=== PATIENT | male | born 1955 | race Caucasian/White ===

== ENCOUNTER 2018-04-04 10:56 | Emergency (ER) | payer MEDICARE, OTHER, SELFPAY ==
[2018-04-04 11:07] VITALS: BP 128/80; PULSE 82; RESP 18; TEMP 36.9; O2SAT 100
--- NOTE | 2018-04-04 11:57 | ED.MALEGU ---
HPI - Male Genitourinary General Chief complaint: Urogenital-Male Stated complaint: PASSING BLOOD IN URINE, BLOOD CLOTS Time Seen by Provider: 04/04/18 11:01 Source: patient Mode of arrival: ambulatory Limitations: no limitations History of Present Illness HPI Narrative: 63-year-old male, nonsmoker presents with hematuria today and some mild clots. He had classic findings of UTI for the past few days including urinary frequency, urgency and dysuria. He denies systemic findings such as fever, chills nor nausea or vomiting. He has no back pain. He denies any history of the same and takes no blood thinners MD Complaint: dysuria Onset (ago): hour(s) Duration: constant Severity: mild Quality: aching Relieving factors: none Exacerbating factors: none Reports blood in urine Related Data Home Medications Medication Instructions Recorded Confirmed aspirin 81 mg PO DAILY #0 02/04/11 04/04/18 omega 2-khr-tcv-fish oil [Fish Oil] 1,000 mg PO DAILY #0 07/23/12 04/04/18 atorvastatin 20 mg PO BEDTIME 04/04/18 04/04/18 escitalopram oxalate [Lexapro] 10 mg PO DAILY 04/04/18 04/04/18 lorazepam 0.5 mg PO BID 04/04/18 04/04/18 jvykanwu-vce-US-lycopen-lutein 1 tab PO DAILY 04/04/18 04/04/18 [Centrum Silver] trazodone 50 mg PO BEDTIME 04/04/18 04/04/18 Previous Rx's Medication Instructions Recorded cephalexin [Keflex] 500 mg PO QID 7 Days #28 cap 04/04/18 lisinopril 5 mg tablet 5 mg PO DAILY #90 tab 04/04/18 Allergies Allergy/AdvReac Type Severity Reaction Status Date / Time No Known Drug Allergies Allergy Unknown Unverified 06/26/17 11:59 Review of Systems Constitutional Denies chills, Denies fever(s), Denies lethargy and Denies weakness Eyes Denies change in vision, Denies eye discharge, Denies irritation and Denies loss of vision ENT Ears, Nose, Mouth, and Throat: Denies change in voice, Denies neck pain and Denies sore throat Cardiovascular Denies chest pain, Denies irregular heart rhythm, Denies lightheadedness, Denies palpitations, Denies dyspnea, Denies dyspnea on exertion and Denies orthopnea Respiratory Denies cough, Denies dyspnea, Denies dyspnea on exertion and Denies wheezing Gastrointestinal Gastrointestinal: Denies abdominal pain, Denies change in bowel habits, Denies diarrhea, Denies nausea and Denies vomiting Genitourinary Reports hematuria, Denies flank pain, Reports urinary frequency, Denies urinary incontinence and Reports urinary urgency Musculoskeletal Denies neck pain Integumentary/Breasts Denies pruritus, Denies erythema, Denies rash and Denies wounds Neurologic Denies confusion, Denies loss of vision and Denies weakness Psychiatric Denies anxiety, Denies confusion, Denies depression, Denies homicidal ideation and Denies suicidal ideation Endocrine Denies palpitations Hematologic/Lymphatic Denies easy bruising Allergic/Immunologic Denies wheezing [facility] Social History Smoking Status: Never smoker Exam Narrative Exam Narrative: GEN: AOx3 and in mild distress EYES: Pupils are equal, round, and reactive to light and accommodation. Extraoccular muscles are intact bilaterally. There is no subconjunctival hemorrhage or exudate. CHEST: Lungs are clear to auscultation bilaterally and free of wheezes, rales, or rhonchi. Heart rate is regular rhythm, there are no murmurs, clicks, rubs, or gallops. There is no chest wall tenderness. ABD: Abdomen is soft and nontender. There is no guarding or rebound. Bowel sounds are normal in all 4 quadrants. There is no mass or organomegaly. EXT: Full painless ROM of all extremities with no loss of sensation or strength. SKIN: Warm, pink, and dry. No erythema or rash Initial Vital Signs Initial Vital Signs: Vital Signs Temperature 98.4 F 04/04/18 11:07 Pulse Rate 82 04/04/18 11:07 Respiratory Rate 18 04/04/18 11:07 Blood Pressure 128/80 04/04/18 11:07 Pulse Oximetry 100 04/04/18 11:07 Course Orders Ordered: ED Orders 04/04/18 11:11 Urinalysis and Microscopic Stat Vital Signs - 8 hr 04/04/18 11:07 04/04/18 12:23 04/04/18 13:08 Temperature 98.4 F Pulse Rate 82 51 L 82 Respiratory Rate 18 18 15 Blood Pressure 128/80 143/80 H Blood Pressure [Right Arm] 132/85 Pulse Oximetry 100 96 98 MDM - Male Genitourinary Lab Data Lab Results 04/04/18 Range/Units Unknown Urine Color Yellow Urine Appearance Sl cloudy Urine pH 7.0 (4.5-8.0) Ur Specific [place] 1.020 (1.000-1.035) Urine Protein Negative (Negative) Urine Glucose (UA) Negative (Negative) g/dL Urine Ketones Negative (NEGATIVE) Urine Occult Blood 3+ H (Negative) Urine Nitrate Positive (Negative) Urine Bilirubin Negative (NEGATIVE) Urine Urobilinogen 0.2 (0.2) E.U./dL Ur Leukocyte Esterase 2+ H (NEGATIVE) Urine RBC 5-10/hpf H (0-5/HPF) Urine WBC 30-100/hpf H (0-5/HPF) Ur Squamous Epith Cells None seen Urine Bacteria Moderate (10-30) H (None) Ur Culture Indicated? Specimen cultured Discharge Plan Departure Patient Disposition: Home Clinical Impression: Acute UTI Discharge Date/Time: 04/04/18 13:09 Interventions: ED Discharge Assessment Last Done: 04/04/18 13:08 Instructions: Urinary Tract Infection Activity Restrictions/Additional Instructions: *You have been diagnosed with [acute urinary tract infection with hematuria ] *What to do: *Take medications as directed. Keflex electronically transmitted to [facility] at your request *Follow up with your primary care provider in 2-3 days, call for an appointment. Let them know you were seen in the Emergency Department and that we ask that you be seen in follow up *Return to ER if you should have any new, worsening or concerning symptoms, such as [ fever, shaking chills, vomiting, increasing pain or other bothersome symptoms] Prescriptions: New cephalexin [Keflex] 500 mg capsule 500 mg PO QID 7 Days Qty: 28 RF: 0 No Action aspirin 81 mg Tablet,Delayed Release (Dr/Ec) 81 mg PO DAILY Qty: 0 RF: 0 omega 3-pto-wgj-fish oil [Fish Oil] 1,000 mg (120 mg-180 mg) Capsule 1,000 mg PO DAILY Qty: 0 RF: 0 lisinopril 5 mg tablet 5 mg PO DAILY Qty: 90 RF: 0 ziowegva-uui-BX-lycopen-lutein [Centrum Silver] 0.4-300-250 mg-mcg-mcg Tablet 1 tab PO DAILY RF: 0 atorvastatin 40 MG tablet 20 mg PO BEDTIME RF: 0 trazodone 50 mg tablet 50 mg PO BEDTIME RF: 0 lorazepam 0.5 mg tablet 0.5 mg PO BID RF: 0 escitalopram oxalate [Lexapro] 20 MG tablet 10 mg PO DAILY RF: 0 Referrals: Jaxson Sinclair MD [Primary Care Provider] -
[2018-04-04 12:18] LABS: Appearance Urine UA SL CLOUDY; Bilirubin Urine UA NEGATIVE (NEGATIVE); Color Urine UA YELLOW; Glucose Urine UA NEGATIVE (Negative); Ketones Urine UA NEGATIVE (NEGATIVE); Leukocyte Esterase Urine UA 2+ (NEGATIVE); Nitrite Urine UA POSITIVE (Negative); Occult Blood Urine UA 3+ (Negative); Protein Urine UA NEGATIVE (Negative); Urobilinogen Urine UA 0.2 E.U./dL (0.2)
[2018-04-04 12:23] VITALS: BP 132/85; PULSE 51; RESP 18; O2SAT 96
[2018-04-04 12:36] LABS: RBC Urine 5-10/HPF (0-5/HPF); WBC Urine 30-100/HPF (0-5/HPF)
[2018-04-04 12:37] LABS: Bacteria Urine Moderate (10-30); Culture Indicated Urine Specimen Cultured; Squamous Epithelial Cell Urine None Seen
[2018-04-04 13:08] VITALS: BP 143/80; PULSE 82; RESP 15; O2SAT 98
== END 2018-04-04 13:09 | disposition home or self-care (01) ==
PROVIDERS: Emergency Provider Emergency Medicine; PCP Family Medicine
DX: N39.0 Urinary tract infection, site not specified (principal)
CPT/HCPCS: 51798; 81001; 87077; 87086; 87186; 99283

== ENCOUNTER → 2018-04-07 15:54 | Outpatient (CLI) | payer MEDICARE, OTHER, SELFPAY | PROVIDERS: PCP Family Medicine; Visit Provider Family Medicine | DX: R31.0 Gross hematuria (principal); Z12.5 Encounter for screening for malignant neoplasm of prostate | CPT/HCPCS: 36415; G0103 ==

== ENCOUNTER → 2018-04-11 09:25 | Outpatient (CLI) | payer MEDICARE, OTHER, SELFPAY ==
--- NOTE | 2018-04-11 10:10 | DI.CT.S_ITS ---
PROCEDURE: CT KIDNEY URETER BLADDER (KUB) INDICATIONS: gross hemeturia,right flank pain TECHNIQUE: Noncontrast 5 mm thick sections acquired from the diaphragms to the symphysis. 5 mm thick coronal and sagittal reformats were then performed. For radiation dose reduction, the following was used: automated exposure control, adjustment of mA and/or kV according to patient size. COMPARISON: [facility], CT, THORAX WITHOUT CONTRAST, 08/01/2012, 9:51. FINDINGS: Image quality: Excellent. Lung bases: Lung bases are clear. Heart size is normal. Urinary system: Both kidneys are normal in size. No kidney stones. No hydronephrosis or perinephric fat stranding. Both ureters appear non-dilated throughout their expected courses. The bladder is predominantly decompressed. There is moderate thickening of the anterior bladder wall. Other solid organs: Liver is normal in size. Gallbladder is contracted. Pancreas is normal in contours. Spleen is normal in size. No adrenal nodules. Peritoneum and bowel: Unenhanced bowel loops demonstrate normal wall thickness and caliber. The appendix is thin walled and gas filled. No free fluid or air. Nodes and vessels: No retroperitoneal or mesenteric adenopathy by size criteria. Aorta and inferior vena cava are normal in caliber. There are scattered atheromatous calcifications throughout the aorta and iliac arteries bilaterally. Abdominal wall: No ventral hernias. Pelvis: No free pelvic fluid. No inguinal adenopathy. There is a small left fat-containing inguinal hernia. Bones: No suspicious bony lesions. No vertebral body compression fractures. IMPRESSION: 1. No hydronephrosis, nephrolithiasis, hydroureter, or ureterolithiasis. 2. Bladder wall thickening. Acute cystitis could be considered in the differential. However, no discrete perivesicular fat stranding is noted. Infiltrative neoplasm could also be considered in the differential diagnosis. Urologic consult recommended. 3. Normal appendix. No acute intra-abdominal findings. Dictated by: Michelle Macdonald M.D. on 04/11/2018 at 14:14 Approved by: Michelle Macdonald M.D. on 04/11/2018 at 14:18
== END ==
PROVIDERS: PCP Family Medicine; Visit Provider Family Medicine
DX: R31.0 Gross hematuria (principal); R10.9 Unspecified abdominal pain
CPT/HCPCS: 74176

== ENCOUNTER → 2018-06-10 10:02 | Outpatient (CLI) | payer MEDICARE, OTHER, SELFPAY ==
--- NOTE | 2018-06-10 | DI.CT.S_ITS ---
PROCEDURE: CT ABDOMEN PELVIS WO/W CON INDICATIONS: Gross hematuria TECHNIQUE: Optional 5 mm thick noncontrast images acquired from the diaphragm to the symphysis pubis. After the administration of intravenous contrast, 5 mm thick images acquired from the diaphragm to the symphysis pubis after a 10-minute delay. 2 mm thick coronal and sagittal reformats were then performed of the kidneys and ureters. For radiation dose reduction, the following was used: automated exposure control, adjustment of mA and/or kV according to patient size. COMPARISON: None. FINDINGS: Image quality: Excellent. Lung bases: Lung bases are clear. Heart size is normal. Urinary system: Both kidneys are normal in size, without hydronephrosis or nephrolithiasis on pre-contrast images. No perinephric fat stranding. There is normal bilateral renal enhancement. Renal calyces appear normal in morphology when filled with contrast. Opacified portions of both ureters demonstrate normal caliber. The urinary bladder is decompressed. Given this, the bladder wall thickness is normal. No calcified bladder stones. Other solid organs: Liver is normal in size and enhancement. Mild diffuse parenchymal hypodensity. Gallbladder is normal. Biliary system is non dilated. Pancreas enhances normally. Spleen is normal in size and enhancement. No adrenal nodules. Peritoneum and bowel: Bowel loops demonstrate normal wall thickness and caliber. No free fluid or air. Nodes and vessels: No retroperitoneal or mesenteric adenopathy by size criteria. Aorta and inferior vena cava are normal in size. Abdominal wall: No ventral hernias. Pelvis: No pathologic free pelvic fluid. No inguinal hernias or adenopathy. Bones: No suspicious bony lesions. No vertebral body compression fractures. IMPRESSION: 1. No evidence of urinary calcifications or abnormal soft tissue lesions. 2. Under distended, but otherwise normal-appearing urinary bladder. If there is further concern for subtle bladder lesion, cystoscopy may be considered. 3. Mild hepatic steatosis. Dictated by: Brisa Ngo M.D. on 06/10/2018 at 11:17 Approved by: Brisa Ngo M.D. on 06/10/2018 at 11:26
== END ==
PROVIDERS: PCP Family Medicine; Visit Provider Urology
DX: R31.0 Gross hematuria (principal); K76.0 Fatty (change of) liver, not elsewhere classified
CPT/HCPCS: 74178; Q9967

== ENCOUNTER → 2018-08-21 08:36 | Outpatient (CLI) | payer MEDICARE, OTHER, SELFPAY ==
[2018-08-21 09:33] LABS: BUN Creatinine Ratio 21.1 (6-22); Blood Urea Nitrogen 19 mg/dL (9-20); Estimated Glomerular Filt Rate > 60.0 mL/min (>60)
--- NOTE | 2018-08-21 09:54 | DI.CT.S_ITS ---
PROCEDURE: CT UE RT W CON INDICATIONS: axillary mass TECHNIQUE: After the administration of intravenous contrast, 3 mm axial sections acquired of the right axilla, with coronal and sagittal reformats. COMPARISON: [facility], CT, CT ABDOMEN PELVIS WO/W CON, 06/10/2018, 10:27. FINDINGS: Image quality: Excellent. Bones: No fracture or dislocation. There is mild/moderate degenerative joint disease in the right acromioclavicular joint and glenohumeral joint. There are degenerative disc disease in cervical spine. Soft tissues: No mass is identified. Numerous small right axillary lymph nodes are seen with fatty hilum, most there could IMPRESSION: 1. No mass is identified in right axilla. If clinical symptoms persist, a focused ultrasound of the area may be helpful. 2. Numerous small right axillary lymph nodes are present, which is nonspecific but most likely reactive. Dictated by: Reece Ferreira M.D. on 08/21/2018 at 13:00 Approved by: Reece Ferreira M.D. on 08/21/2018 at 18:26
== END ==
PROVIDERS: PCP Family Medicine; Visit Provider Family Medicine
DX: Z01.812 Encounter for preprocedural laboratory examination (principal); R22.31 Localized swelling, mass and lump, right upper limb; M19.011 Primary osteoarthritis, right shoulder; M50.30 Other cervical disc degeneration, unspecified cervical region
CPT/HCPCS: 36415; 73201; 82565; 84520; Q9967

== ENCOUNTER → 2018-10-06 09:02 | Outpatient (CLI) | payer MEDICARE, OTHER, SELFPAY ==
[2018-10-06 10:47] LABS: HCG Quantitative /Beta subunit < 2.39 mIU/mL (-2.40)
[2018-10-06 11:08] LABS: Luteinizing Hormone 3.48 mIU/mL
[2018-10-06 11:24] LABS: Estradiol, Total 15.9 pg/mL
[2018-10-09 22:20] LABS: Testosterone Free 25.3 pg/mL (35.0-155.0); Testosterone Total 161 ng/dL (250-1100)
== END ==
PROVIDERS: PCP Family Medicine; Visit Provider Surgery
DX: N62 Hypertrophy of breast (principal); Q83.1 Accessory breast
CPT/HCPCS: 36415; 82670; 83002; 84402; 84403; 84702

== ENCOUNTER → 2018-11-20 07:03 | Outpatient (CLI) | payer MEDICARE, OTHER, SELFPAY ==
[2018-11-20 11:59] LABS: Follicle Stimulating Hormone 2.96 mIU/mL
[2018-11-20 12:12] LABS: Estradiol, Total 20.1 pg/mL
[2018-11-20 12:38] LABS: Luteinizing Hormone 2.13 mIU/mL
[2018-11-23 08:43] LABS: Sex Hormone Binding Globulin 22 nmol/L (22-77); Testosterone, Bioavailable 82.8 ng/dL (110.0-575.0); Testosterone, Total 235 ng/dL (250-1100); Testosterone,Free 39.4 pg/mL (46.0-224.0)
[2018-12-02 14:54] LABS: Albumin 4.6
== END ==
PROVIDERS: PCP Family Medicine; Visit Provider Internal Medicine Endocrinology, Diabetes & Metabolism
DX: N62 Hypertrophy of breast (principal); R68.89 Other general symptoms and signs
CPT/HCPCS: 36415; 82040; 82157; 82670; 83001; 83002; 84146; 84270; 84403; 84443

== ENCOUNTER → 2018-12-15 18:46 | Outpatient (CLI) | payer MEDICARE, OTHER, SELFPAY ==
--- NOTE | 2018-12-15 | DI.MRI.S_ITS ---
PROCEDURE: MR SHOULDER RT WO CON INDICATIONS: Unspecified rotator cuff tear or rupture of right TECHNIQUE: Noncontrast oblique coronal T2 fast spin echo with fat saturation, oblique sagittal T1 spin echo and T2 fast spin echo with fat saturation, axial T1 spin echo and T2 fast spin echo with fat saturation through the shoulder. COMPARISON: [facility], MR, SHOULDER WITHOUT CONTRAST, 02/08/2017, 7:09. FINDINGS: Image quality: Excellent. Rotator cuff: There is full-thickness rupture of distal supraspinatus at its insertion the humeral head with medial retraction of torn tendon fibers to the level of the chromium and a fluid-filled Measures 1.2 x 1.1 cm in transverse and AP dimensions. Tendinosis are moderately articular surface partial-thickness tear involving distal infraspinatus is seen extending to musculotendinous junction. Distal subscapularis tendinosis and low-grade intrasubstance partial thickness tear is also noted. Sagittal images demonstrate mild to moderate supraspinatus muscle atrophy. Bones and bursae: No bone marrow contusions or fractures. Moderate acromioclavicular joint and glenohumeral joint osteoarthritis is seen. Small to moderate amount of subacromial subdeltoid bursal fluid and glenohumeral joint effusion is seen. Capsule and soft tissues: In the absence of intra-articular contrast, there is signal abnormality and contour irregularity involving the posterior-superior labrum extending from 10 to 12:00 position. The glenohumeral ligaments appear intact. The long head of the biceps tendon demonstrates normal location and morphology. The rotator interval appears normal, without fibrosis. The coracohumeral ligament is normal in thickness. IMPRESSION: 1. Full-thickness rupture of distal supraspinatus near its insertion the humeral head with medial retraction of torn tendon fibers to the level of acromium as described above. Mild to moderate supraspinatus muscle atrophy. 2. Tendinosis and moderately articular surface partial-thickness tear involving distal infraspinatus. Tendinosis and low-grade intrasubstance partial-thickness tear involving distal subscapularis. 3. Moderate acromioclavicular joint and glenohumeral joint osteoarthritis. 4. Suggestion of posterior superior labral tear at 10 to 12:00 position. Dictated by: Oral Chase M.D. on 12/16/2018 at 8:51 Approved by: Oral Chase M.D. on 12/16/2018 at 8:55
== END ==
PROVIDERS: PCP Family Medicine; Visit Provider Orthopaedic Surgery
DX: M75.121 Complete rotator cuff tear or rupture of right shoulder, not specified as traumatic (principal); M19.011 Primary osteoarthritis, right shoulder
CPT/HCPCS: 73221

== ENCOUNTER → 2018-12-22 12:14 | Outpatient (CLI) | payer MEDICARE, OTHER, SELFPAY | PROVIDERS: Family Provider Family Medicine; PCP Family Medicine; Visit Provider Orthopaedic Surgery | DX: Z01.818 Encounter for other preprocedural examination (principal) | CPT/HCPCS: 93005 ==

== ENCOUNTER → 2019-03-26 09:59 | Outpatient (CLI) | payer MEDICARE, OTHER, SELFPAY ==
[2019-03-26 11:10] LABS: Alanine Aminotransferase 72 IU/L (<50); Albumin 4.8 g/dL (3.5-5.0); Albumin Globulin Ratio 1.8 (1.0-2.8); Alkaline Phosphatase 80 U/L (38-126); Aspartate Aminotransferase 65 IU/L (17-59); BUN Creatinine Ratio 21.1 (6-22); Bilirubin Total 0.6 mg/dL (0.2-1.3); Blood Urea Nitrogen 19 mg/dL (9-20); Calcium 9.7 mg/dL (8.4-10.2); Carbon Dioxide 26 mmol/L (22-32); Chloride 104 mmol/L (98-107); Cholesterol 135 mg/dL (140-199); Estimated Glomerular Filt Rate > 60.0 mL/min (>60); Globulin 2.6 g/dL (1.7-4.1); Glucose 148 mg/dL (80-110); HDL Cholesterol 32 mg/dL (40-60); HEMOLYSIS < 15 (0-50); LDL Cholesterol Calculated 64 mg/dL (<100); Potassium 4.3 mmol/L (3.4-5.1); Sodium 138 mmol/L (137-145); Total Protein 7.4 g/dL (6.3-8.2); Triglycerides 193 mg/dL (35-150)
== END ==
PROVIDERS: PCP Family Medicine; Visit Provider Internal Medicine Cardiovascular Disease
DX: I25.10 Atherosclerotic heart disease of native coronary artery without angina pectoris (principal)
CPT/HCPCS: 36415; 80053; 80061

== ENCOUNTER → 2019-04-04 10:03 | Outpatient (CLI) | payer MEDICARE, OTHER, SELFPAY ==
[2019-04-04 11:19] LABS: Cholesterol 135 mg/dL (140-199); HDL Cholesterol 34 mg/dL (40-60); LDL Cholesterol Calculated 72 mg/dL (<100); Triglycerides 144 mg/dL (35-150)
== END ==
PROVIDERS: PCP Family Medicine; Visit Provider Internal Medicine Cardiovascular Disease
DX: I25.10 Atherosclerotic heart disease of native coronary artery without angina pectoris (principal)
CPT/HCPCS: 36415; 80061

== ENCOUNTER → 2019-10-09 12:50 | Outpatient (CLI) | payer MEDICARE, OTHER, SELFPAY ==
--- NOTE | 2019-10-09 | DI.MRI.S_ITS ---
PROCEDURE: MR LUMBAR SPINE WO CON INDICATIONS: Low back pain TECHNIQUE: Noncontrast sagittal T1 spin echo and T2 fast echo, sagittal STIR, axial T1 and T2 fast spin echo through the lumbar spine. In cases with scoliosis, additional coronal T2 fast spin echo may be performed. COMPARISON: [facility], CR, L-SPINE 2-3 VIEWS, 11/24/2014, 12:39. [facility], MR, L-SPINE WITHOUT CONTRAST, 04/08/2015, 9:28. FINDINGS: Image quality: Excellent. Alignment and Curvature: 5 lumbar type vertebral bodies are present by plain film. There is mild grade 1 anterolisthesis of L4 on L5. Bone Marrow: Marrow is of normal overall signal. No acute vertebral body compression fractures. There is mild reactive signal within the endplates adjacent to the L4-L5 and L5-S1 intervertebral discs. Spinal Cord: Conus medullaris terminates at the lower L1 level. Visualized cord demonstrates normal signal and size. Paraspinous Soft Tissues: No paravertebral masses. L1-L2: Mild disc desiccation and diffuse disc bulge. Mild facet and ligamentum flavum hypertrophy. Minimal canal stenosis. No foraminal stenosis. No change. L2-L3: Mild disc height loss and desiccation. Mild diffuse disc bulge. Mild facet and ligamentum flavum hypertrophy. Mild canal stenosis. Mild bilateral foraminal stenosis. No change. L3-L4: Mild disc desiccation and diffuse disc bulge. Mild facet and ligamentum flavum hypertrophy. Mild epidural lipomatosis. Mild canal stenosis. Mild bilateral foraminal stenosis. No change. L4-L5: Mild disc height loss. Moderate disc desiccation. Moderate diffuse disc bulge. Moderate facet hypertrophy bilaterally with bilateral facet joint effusions. Mild ligamentum flavum hypertrophy. Mild epidural lipomatosis. There is increased, severe canal stenosis. There is increased, moderate subarticular foraminal stenosis bilaterally. L5-S1: Moderate disc height loss and desiccation. Mild diffuse disc bulge. Mild facet hypertrophy bilaterally. Mild canal stenosis. Mild subarticular foraminal stenosis bilaterally. No change. IMPRESSION: 1. Multilevel degenerative disc and facet disease, as well as ligamentum flavum hypertrophy and epidural lipomatosis. 2. Multilevel canal stenosis, worst at L4-L5, where there is increased, severe canal stenosis. 3. Multilevel foraminal stenoses, worst at L4-L5 where there is increased, moderate foraminal stenosis bilaterally. Dictated by: Shona Bynum M.D. on 10/09/2019 at 13:44 Approved by: Shona Bynum M.D. on 10/09/2019 at 13:50
== END ==
PROVIDERS: PCP Family Medicine; Referring Provider Physical Medicine & Rehabilitation; Visit Provider Physical Medicine & Rehabilitation
DX: M54.5 Low back pain (principal); M51.36 Other intervertebral disc degeneration, lumbar region; M51.37 Other intervertebral disc degeneration, lumbosacral region; M48.061 Spinal stenosis, lumbar region without neurogenic claudication; M48.07 Spinal stenosis, lumbosacral region; E88.2 Lipomatosis, not elsewhere classified
CPT/HCPCS: 72148

== ENCOUNTER → 2019-12-24 09:02 | Outpatient (CLI) | payer MEDICARE, OTHER, SELFPAY ==
[2019-12-24 09:58] LABS: Add Manual Diff / Slide Review NO; Basophils Absolute Auto 0 /uL (0-100); Basophils Percent Auto 0.4 % (0-2); Eosinophils Absolute Auto 100 /uL (0-450); Eosinophils Percent Auto 1.5 % (2-4); Hematocrit 43.2 % (41-53); Hemoglobin 14.9 g/dL (13.5-17.5); Lymphocytes Absolute Auto 2400 /uL (1100-4500); Lymphocytes Percent Auto 32.8 % (25-40); Mean Corpuscular HGB Conc 34.4 % (30-36); Mean Corpuscular Hemoglobin 32.2 PG (26-34); Mean Corpuscular Volume 93.6 fL (80-100); Monocytes Absolute Auto 500 /uL (0-900); Monocytes Percent Auto 7.3 % (3-14); Neutrophils Absolute Auto 4200 /uL (1500-7000); Platelet Count 126 X10^3/uL (150-400); Red Blood Cell Count 4.62 X10^6/uL (4.5-5.9); Red Cell Distribution Width 12.8 % (11.6-14.8); White Blood Cell Count 7.2 X10^3/uL (4.5-11.0)
[2019-12-24 10:08] LABS: Alanine Aminotransferase 64 IU/L (<50); Albumin 4.3 g/dL (3.5-5.0); Albumin Globulin Ratio 1.7 (1.0-2.8); Alkaline Phosphatase 65 U/L (38-126); Aspartate Aminotransferase 56 IU/L (17-59); BUN Creatinine Ratio 24.2 (6-22); Bilirubin Total 0.8 mg/dL (0.2-1.3); Blood Urea Nitrogen 22 mg/dL (9-20); Calcium 9.7 mg/dL (8.4-10.2); Carbon Dioxide 28 mmol/L (22-32); Chloride 106 mmol/L (98-107); Cholesterol 138 mg/dL (140-199); Estimated Glomerular Filt Rate > 60.0 mL/min (>60); Globulin 2.6 g/dL (1.7-4.1); Glucose 113 mg/dL (80-110); HDL Cholesterol 43 mg/dL (40-60); HEMOLYSIS < 15 (0-50); LDL Cholesterol Calculated 73 mg/dL (<100); Potassium 4.6 mmol/L (3.4-5.1); Sodium 139 mmol/L (137-145); Total Protein 6.9 g/dL (6.3-8.2); Triglycerides 108 mg/dL (35-150)
[2019-12-24 10:37] LABS: Prostate Specific Antigen Scrn 0.223 ng/mL (0.1-4.0)
== END ==
PROVIDERS: PCP Family Medicine; Referring Provider Family Medicine; Visit Provider Family Medicine
DX: E78.2 Mixed hyperlipidemia (principal); I25.10 Atherosclerotic heart disease of native coronary artery without angina pectoris; Z12.5 Encounter for screening for malignant neoplasm of prostate
CPT/HCPCS: 36415; 80053; 80061; 85025; G0103

== ENCOUNTER → 2020-01-08 10:28 | Outpatient (CLI) | payer MEDICARE, OTHER, SELFPAY ==
[2020-01-08 12:18] LABS: Add Manual Diff / Slide Review NO; Basophils Absolute Auto 0 /uL (0-100); Basophils Percent Auto 0.6 % (0-2); Eosinophils Absolute Auto 100 /uL (0-450); Eosinophils Percent Auto 1.2 % (2-4); Hematocrit 41.5 % (41-53); Hemoglobin 14.1 g/dL (13.5-17.5); Lymphocytes Absolute Auto 2000 /uL (1100-4500); Lymphocytes Percent Auto 30.3 % (25-40); Mean Corpuscular Hemoglobin 31.6 PG (26-34); Monocytes Absolute Auto 700 /uL (0-900); Monocytes Percent Auto 10.3 % (3-14); Neutrophils Absolute Auto 3700 /uL (1500-7000); Neutrophils Percent Auto 57.6 % (50-75); Platelet Count 112 X10^3/uL (150-400); Red Blood Cell Count 4.46 X10^6/uL (4.5-5.9); Red Cell Distribution Width 12.7 % (11.6-14.8); White Blood Cell Count 6.5 X10^3/uL (4.5-11.0)
[2020-01-08 12:49] LABS: BUN Creatinine Ratio 29.8 (6-22); Blood Urea Nitrogen 25 mg/dL (9-20); Calcium 9.6 mg/dL (8.4-10.2); Carbon Dioxide 26 mmol/L (22-32); Chloride 107 mmol/L (98-107); Estimated Glomerular Filt Rate > 60.0 mL/min (>60); Glucose 108 mg/dL (80-110); HEMOLYSIS < 15 (0-50); Sodium 139 mmol/L (137-145)
== END ==
PROVIDERS: PCP Family Medicine; Referring Provider Orthopaedic Surgery; Visit Provider Orthopaedic Surgery
DX: Z01.818 Encounter for other preprocedural examination (principal); Z01.812 Encounter for preprocedural laboratory examination
CPT/HCPCS: 36415; 80048; 85025; 93005; 93010

== ENCOUNTER → 2020-01-30 10:18 | Outpatient (CLI) | payer MEDICARE, OTHER, SELFPAY ==
[2020-01-30 13:04] LABS: Prostate Specific Antigen 0.194 ng/mL (0.10-4.00)
== END ==
PROVIDERS: PCP Family Medicine; Referring Provider Urology; Visit Provider Urology
DX: Z12.5 Encounter for screening for malignant neoplasm of prostate (principal)
CPT/HCPCS: 36415; 84153; G0103

== ENCOUNTER → 2020-02-22 08:48 | Outpatient (CLI) | payer MEDICARE, OTHER, SELFPAY ==
[2020-02-22 11:10] LABS: COVID19 -Nasal RAPID Negative (Negative)
== END ==
PROVIDERS: PCP Family Medicine; Visit Provider Physician Assistant
DX: Z11.59 Encounter for screening for other viral diseases (principal)
CPT/HCPCS: 87635

== ENCOUNTER 2020-02-23 08:09 | Inpatient (IN) | payer MEDICARE, OTHER, SELFPAY ==
[2020-02-18 09:33] VITALS: BMI 32.3
[2020-02-23] VITALS (24 sets, daily range): BP systolic 98–149; BP diastolic 44–88; PULSE 39–49; RESP 7–16; TEMP 35.8–36.8; O2SAT 88–100; BMI 32.3
--- NOTE | 2020-02-23 | DI.RAD.S_ITS ---
PROCEDURE: XR LUMBAR SPINE 2-3V INDICATIONS: L4-5 XLIF TECHNIQUE: 2 views of the lumbar spine were acquired. COMPARISON: [facility], , L-SPINE 2-3 VIEWS, 11/24/2014, 12:39. FINDINGS: Posterior spinal fixation with paraspinal gabby and pedicle screws present at the L4-L5 level. There is also interbody cage graft at L4-L5. Dictated by: Jarad Clifton M.D. on 02/24/2020 at 9:35 Approved by: Jarad Clifton M.D. on 02/24/2020 at 9:36
[2020-02-23] MEDS: LACTATED RINGERS 1,000 ML 42 ML IV ×2 (08:57→13:06)
--- NOTE | 2020-02-23 09:28 | PM.PREOP ---
Pre-operative Note COVID-19 COVID-19 status: Negative Result date/Date tested (Pos, Neg/Pending): 02/22/20 Interval Note History & Physical reviewed/Exam performed by Physician: Yes Changes to H&P: No
--- NOTE | 2020-02-23 10:11 | P.OP_ITS ---
Operative Date/Time/Diagnoses Date of procedure: 02/23/20 Time of procedure: 13:50 Pre-op diagnosis: Lumbar stenosis with radiculopathy Spondylolisthesis Post-op diagnosis: same Procedure & Clinicians Procedure: L4-5 anterior fusion with cage L4-5 posterior fusion with screws Iliac crest bone graft aspirate L4-5 laminectomy Use of microscope Placement of epidural catheter Same procedure as scheduled: Yes Indications: [age] year old male with intractable pain from stenosis. They had failed conservative management and requested operative intervention. Risks and benefits of surgery were discussed and appropriate consents were obtained. Surgeon: Vicente Benitez Supervisor [employer]: Sofia Baldwin Anesthesia Type: General Operative Notes Findings: None Closure Type: primary Specimen(s): none sent Prosthetic devices, grafts, tissues, transplants, or devices: NuVasive MAS Reline screws and XLIF cage Applied: catheter Estimated Blood Loss (mL): 30 Procedure in detail: Patient was brought to the operating room and intubated on the table. Time-out was performed. They were then rolled over to the lateral decubitus position with the [id number]. The table was bent and they were taped down in the correct position. X-rays were taken to confirm a true AP and lateral. Preoperative antibiotics were given. The left flank was prepped and draped in standard sterile fashion. Using fluoroscopy, a 3 cm incision was made above the iliac crest. We bluntly dissected down with Metzenbaum scissors and split the 3 abdominal muscle layers. We dissected out the retroperitoneal space and using finger guidance, brought our 1st dilator down to the psoas muscle. Using neuromonitoring and fluoroscopy, we placed it through the psoas onto the L4-5 disc space in an anterior position and gradually pulled the dilator posteriorly along the disc space. We placed our guidewire and measured our depth for the retractor. We then dilated with the next 2 dilators and then placed our retractor over the dilators. Position was confirmed with fluoroscopy and the retractor was locked down to the bar. We opened up the retractor and checked with neuro monitoring. We then placed the debbie and again checked with neuro monitoring. The retractor was opened further and the ALL retractor was placed. An annulotomy was performed. We then performed a complete diskectomy with ring curette, pituitary, box osteotome. A Posada was advanced across the disc space under fluoroscopy to release the lateral annulus on the opposite side. We then used sequentially larger trials and confirmed under fluoroscopy. An XLIF cage was packed with Osteocel bone graft and impacted into the L4-5 disc space with fluoroscopy for the anterior fusion at this level. The wound was irrigated. The retractor was closed down. The debbie was removed. We carefully removed the retractor with direct visualization to make sure there was no neurovascular or abdominal injury. Final x-rays were taken. The muscle fascia was closed, superficial tissue was closed. The skin was closed. Sterile dressing was placed. The patient was then rolled over on the well-padded prone position on the Lloyd table. Using fluoroscopy for localization, a 3 cm incision was made to the well marked left of the midline. Bovie used to come down to and split the fascia. We then percutaneously placed Jamshidi needles down the left pedicles of L4 and L5 under fluoroscopic guidance with neuro monitoring. These were changed to guidewires. We then tapped and placed our screw shanks. We opened up the retractor and cleared out the posterolateral gutter as well as along the lamina to the spinous process. We used the bur to decorticate the transverse processes of L4 and L5. We brought in the microscope. A left-sided laminectomy was performed at L4-5. We carefully depressed the dura and reach across and decompress the opposite side. We cleared out the neural foramen. At the end we could sweep the ball probe cephalad and caudally and out the foramen everything was open. The wound was copiously irrigated. We then placed our screw heads and gabby and then locked them down. A small stab incision was made over the PSIS and a Jamshidi needle was placed into the iliac crest and several mL of bone marrow was aspirated. This was mixed with our locally harvested bone graft as well as the remaining Osteocel and placed in the posterolateral gutter for fusion at L4- 5. An epidural catheter was primed with 4mL of 0.5% bupivacaine, 100 mcg fentanyl, 4 mg Duramorph, 1 mg Stadol. The dura was depressed under the cephalad lamina with a ball probe and the epidural catheter was gently advanced 6 cm cephalad. The fascia was then closed. The epidural was then injected without resistance. The catheter was pulled and we closed more over the fascia. We then made a 3 cm incision on the right side. Bovie to split the fascia. We percutaneously placed Jamshidi needles down the right pedicles of L4 and L5 with neural monitoring fluoroscopy. These were changed over guidewires, tapped and our screws placed. The gabby was placed and we locked this down. The wound was irrigated. The fascia was closed. Vancomycin powder was placed in the wounds. The superficial and skin were closed. Sterile dressing was placed. The patient was then rolled over, extubated, brought to the recovery room with no complications. Complications: none Post-operative Condition: stable Disposition: PACU Plan for aftercare: Inpatient. Mobilize with physical therapy.
[2020-02-23] MEDS: CEFAZOLIN 2 GM/100 ML FROZ.PIGGY IV ×2 (10:27→19:47)
--- NOTE | 2020-02-23 11:05 | SUR.OPER ---
position 1: Right lateral on padded OR table. Head on pillow, gel axillary roll, pillows x2 to support left arm. Legs flexed, pillows between legs, gel pad under down leg from knee to foot. Multiple passes of 3 inch cloth tape across shoulder, hip, upper and lower legs to secure patient on OR table.
--- NOTE | 2020-02-23 11:06 | SUR.OPER ---
position 2: Prone on spine table, head in foam head support, padded chest and pelvic supports, gel pad at knees, lower legs supported by pillows; nipples, genitalia and toes free of pressure, arms secured on foam padded arm boards at <90 degrees abduction. Tape over blanket at thigh secured to table.
[2020-02-23] MEDS: VANCOMYCIN 1,000 MG VIAL 1000 MG TOP (11:13)
[2020-02-23] MEDS: SODIUM CHLORIDE 0.9% 1,000 ML, GENTAMICIN 80 MG IRR (11:13)
[2020-02-23] MEDS: THROMBIN (RECOMBINANT) 5,000 UNIT VIAL 5000 UNIT TOP (11:13)
[2020-02-23] MEDS: BUPIVACAINE 0.5% (PF) 4 ML, MORPHINE-PF 4 MG, BUTORPHANOL 1 MG, fentaNYL 100 MCG INJ (11:14)
--- NOTE | 2020-02-23 14:42 | SUR.PHASEI ---
2167 Dr. Garcia here, checked on patient. VSS. Jaw thrust necessary, oral airway in place, VSS with support by 2nd RN.
--- NOTE | 2020-02-23 14:51 | SUR.PHASEI ---
Moves extremities to vocal stimulation, does not open eyes or mouth upon command. no longer needs airway/jaw support. Resp even and regular. Skin warm and dry.
--- NOTE | 2020-02-23 15:15 | SUR.PHASEI ---
1508 converted to O2 at 5LNP, Moves in response to voice, unable to open eyes
--- NOTE | 2020-02-23 15:58 | SUR.PHASEI ---
1555 Assisted Juan Ybarra RN in turning the patient to his left side (patient attempting to turn but required assistance required). Does not respond to request to squeeze fingers or press on feet. Dr. Garcia notified by phone into the OR. Discussed option of narcan vs time. Agreed to allow more time for waking up since his vital signs are stable and he opens eyes to command. Able to draw up legs and move all extremeties independently. Back dressing remains CDI. 1605 Weak sqeeze to fingers upon request.
--- NOTE | 2020-02-23 16:28 | SUR.PHASEI ---
Arouses intermittently. No verbal responses, holds finger to lips when staff talks in a loud voice. Shook head side to side to deny pain or nausea. Resp unlabored. Urine yellow, very cloudy. Dr. Benitez was notified earlier with the request for UA order.
--- NOTE | 2020-02-23 16:49 | SUR.PHASEI ---
1645 Report called to floor. Pt was able to tell his name, stated year is 2018, knows that he is at [facility]. Denies pain/nausea, shakes head to acknowledge that he would like juice, stated 'apple'. Juice given, swallowed without difficulty.
--- NOTE | 2020-02-23 16:56 | SUR.PHASEI ---
now talking, states that year is 2020, reoriented to date, acknowledged it. Beginning to talk, stated that his throat is dry. Juice given. Improving strength in all extremities.
--- NOTE | 2020-02-23 17:28 | SUR.PHASEI ---
1703 to room 219, bed down and locked, call light within reach. SCDs on. present, explained situation to her. She stated that he had a very long/hard time waking up after a previous shoulder surgery as well. Encouraged her to always let the doctors know this for future surgeries. Pt drowsy but opening eyes and talking. Extremity strength improving. Denies pain/nausea. VSS on arrival. Resp even and regularWaited for RN for handoff. Dr. Benitez arrived, gave him an update on the patient. Heart-rate went down into the 30's; pointed this out to doctor Emmanuel. Pt has been assymptomatic - no dizziness/light headedness throughout PACU stay. RN acknowledged that she will be putting the tele monitor on him. No orders from surgeon prior to my departure from acute care. He remained there, talking with RN, pt, and . Clothing bag and glasses to the room.
[2020-02-23] MEDS: CELECOXIB 200 MG CAPSULE 400 MG PO (18:44)
[2020-02-23] MEDS: HYDROMORPHONE 0.5 MG INJ IV ×2 (18:44→23:17)
[2020-02-23] MEDS: LACTATED RINGERS 1,000 ML 125 ML IV (18:45)
--- NOTE | 2020-02-23 19:21 | PC.NURSE ---
Up tp unit at 1600. Hx of bradycardia and was running 30s-40s post op. Dropped to 20's, physician notified and stat EKG was performed. EKG showed sinus swati and no other concerns. Will continue to monitor. Pain 9/10 in back, given 0.5 mg IV dilaudid.
[2020-02-23] MEDS: HYDROCODONE/ACET 5/325 TABLET 2 TAB PO (19:46)
[2020-02-23] MEDS: ATORVASTATIN 20 MG TABLET 40 MG PO (20:17)
[2020-02-23] MEDS: DOCUSATE 100 MG CAPSULE PO (20:17)
[2020-02-23] MEDS: hydrOXYzine pamoate 25 MG CAPSULE PO (20:18)
[2020-02-23] MEDS: SENNOSIDES 8.6 MG TABLET 17.2 MG PO (20:18)
[2020-02-23] MEDS: GABAPENTIN 300 MG CAPSULE PO (20:18)
[2020-02-23] MEDS: TAMSULOSIN 0.4 MG CAPSULE PO (20:19)
[2020-02-23] MEDS: TRAZODONE 50 MG TABLET PO (20:19)
[2020-02-23] MEDS: LORazepam 0.5 MG TABLET PO (20:19)
[2020-02-23 20:49] LABS: Bacteria Urine None Seen; WBC Urine None Seen (0-5/HPF)
[2020-02-23 20:50] LABS: Appearance Urine UA SL CLOUDY; Bilirubin Urine UA NEGATIVE (NEGATIVE); Color Urine UA YELLOW; Glucose Urine UA NEGATIVE (Negative); Ketones Urine UA NEGATIVE (NEGATIVE); Leukocyte Esterase Urine UA NEGATIVE (NEGATIVE); Nitrite Urine UA NEGATIVE (Negative); Occult Blood Urine UA 1+ (Negative); Protein Urine UA NEGATIVE (Negative); Specific Gravity Urine UA 1.025 (1.000-1.035); Urobilinogen Urine UA 0.2 E.U./dL (0.2)
[2020-02-23 20:53] LABS: Culture Indicated Urine Cult Not Indicated; RBC Urine 1-5/HPF (0-5/HPF)
--- NOTE | 2020-02-23 22:25 | PC.NURSE ---
PT REPORTS PAIN 8-9/10 ( BACK) FLACC SCORE OF 3-4, MEDICATED PER PT REQUEST- INSTRUCTED ON I-S USE AND PT ABLE TO PULL UPWARDS OF 2500ML- OCCASIONAL COUGH - DSG DRY AND INTACT GOOD CMS BILAT LOWER EXTREMITY- SCD'S IN PLACE AND DIALLO REMAINS PATENT, PT TAKING DIET WELL
[2020-02-24] VITALS: BP 114/50; PULSE 53; RESP 15; TEMP 36.5; O2SAT 96
[2020-02-24] MEDS: HYDROCODONE/ACET 5/325 TABLET 1 TAB PO (00:24)
--- NOTE | 2020-02-24 00:57 | PC.NURSE ---
Addendum entered by Aracely Myrick R.N. 02/24/20 06:53: 0653 Received report from ICU Telemetry. The patient's heart rate's lowest has been 35 beats per minute. Addendum entered by Araecly Mryick R.N. 02/24/20 06:48: 0645 Received report from ICU Telemetry. The patient's heart rate is still occasionally dropping into the 30s. Average heart rate is high 40s. He is alert and oriented x4, other vital signs stable. Addendum entered by Aracely Myrick R.N. 02/24/20 06:25: 0600 IVF discontinued. NS flush PRN added to chart for administration of antibiotics or other. Pt tolerating pain best with 2 tabs of hydrocodone/APAP. Currently rating post-op pain 5/10. Original Note: 2300 Received safe hand-off report. The patient is awake and sitting up in bed. He is oriented x4. He is rating his post-op pain a 9/10 at the moment. He has a right forearm PIV with LR infusing at 125mL/h, he is on room air and telemetry monitoring for bradycardia. He has an indwelling catheter in place. He has a surgical dressing on his lumbar spine that is CDI. The bed alarm is on. No s/sx of distress. Plan: DC IVF in the AM; he is tolerating PO fluids and food.
[2020-02-24] MEDS: HYDROMORPHONE 0.5 MG INJ IV (02:24)
[2020-02-24 03:42] VITALS: BP 110/51; PULSE 54; RESP 14; TEMP 36.8; O2SAT 96
[2020-02-24 05:16] VITALS: O2SAT 97
[2020-02-24 05:21] LABS: Hematocrit 38.3 % (41-53)
[2020-02-24] MEDS: CEFAZOLIN 2 GM/100 ML FROZ.PIGGY IV (05:58)
[2020-02-24] MEDS: HYDROCODONE/ACET 5/325 TABLET 2 TAB PO ×3 (05:58→14:27)
[2020-02-24] MEDS: SODIUM CHLORIDE 0.9% 250 ML 21 ML IV (06:04)
[2020-02-24 07:16] VITALS: BP 101/62; PULSE 45; RESP 14; TEMP 37.1; O2SAT 96
--- NOTE | 2020-02-24 07:29 | PM.PNPO.1 ---
Subjective Subjective Date Patient Seen: 02/24/20 Time Patient Seen: 07:29 Interval history: He is doing well. Pain is about a 6 currently just on oral pain medicine. He took a very long time to wake up yesterday. He had bradycardia which is normal for him but he is back up to the 50s which is his baseline. Exam Vital Signs (past 8 hours): - 02/24/20 00:00 02/24/20 03:42 02/24/20 05:16 Temperature 97.7 F 98.3 F Pulse Rate 53 L 54 L Respiratory Rate 15 14 Blood Pressure 114/50 L 110/51 L Pulse Oximetry 96 96 97 Oxygen Delivery Method Room Air Oxygen Flow Rate 0 Const Orientation: alert and oriented x3 Back/Spine/Pelvis Other: Minimal dry drainage on the lateral dressing. Posterior CDI. 5/5 motor both lower extremities. Objective Labs Result Diagrams: 02/24/20 05:00 Labs: Laboratory Results - last 24 hr 02/23/20 02/24/20 18:30 05:00 Hgb 13.0 L Hct 38.3 L Urine Color Yellow Urine Appearance Sl cloudy Urine pH 5.0 Ur Specific Zearing 1.025 Urine Protein Negative Urine Glucose (UA) Negative Urine Ketones Negative Urine Occult Blood 1+ H Urine Nitrate Negative Urine Bilirubin Negative Urine Urobilinogen 0.2 Ur Leukocyte Esterase Negative Urine RBC 1-5/hpf Urine WBC None seen Urine Bacteria None seen Ur Culture Indicated? Cult not indicated PFSH Medical History (Updated 02/18/20 @ 10:16 by Radha Elaine RN) Arthritis CAD (coronary artery disease) Gynecomastia HTN (hypertension) Myocardial infarction (2010) Osteoarthritis Sinus bradycardia Surgical History (Updated 02/18/20 @ 10:12 by Radha Elaine RN) History of coronary artery stent placement (2010) History of hand surgery Hx of hand surgery Hx of oral surgery Hx of repair of right rotator cuff (01/15/19) Social History (Updated 09/30/18 @ 09:01 by Anabella Chow RN) marital status: household members: spouse occupational status: employed Smoking Status: Never smoker alcohol intake: current substance use type: does not use Assessment & Plan Post-op Postoperative Procedures: Procedures Operation Date: 02/23/20 09:45 Actual Procedures Side Surgeon p L45 laminectomy & anterior/posterior instumented fusion (XLIF) w. bone graft Vicente Benitez MD Is doing well. Mobilize today with physical therapy. Anticipate discharge home probably tomorrow.
[2020-02-24 09:04] VITALS: BP 101/62
[2020-02-24] MEDS: lisinopriL 5 MG TABLET PO (09:04)
[2020-02-24] MEDS: MULTIVITAMIN 1 TABLET 1 TAB PO (09:04)
[2020-02-24] MEDS: CELECOXIB 200 MG CAPSULE PO (09:04)
[2020-02-24] MEDS: LORazepam 0.5 MG TABLET PO (09:04)
[2020-02-24] MEDS: SOLIFENACIN 5 MG TABLET 15 MG PO (09:04)
[2020-02-24] MEDS: DOCUSATE 100 MG CAPSULE PO (09:04)
[2020-02-24] MEDS: ESCITALOPRAM 10 MG TABLET PO (09:04)
[2020-02-24] MEDS: FISH OIL 1,000 MG CAPSULE 1000 MG PO (09:10)
--- NOTE | 2020-02-24 11:08 | OT.IP.EVAL ---
Current Diagnoses Spondylolisthesis, lumbar region (02/23/20) Spinal stenosis, lumbar region with neurogenic claudication (02/23/20) Surgery Performed Operation Date: 02/23/20 09:45 Actual Procedures p L45 laminectomy & anterior/posterior instumented fusion (XLIF) w. bone graft - Vicente Benitez MD Past Medical History (Last Updated 02/18/20 @ 10:16 by Radha Elaine RN) Arthritis CAD (coronary artery disease) Gynecomastia HTN (hypertension) Myocardial infarction (2010) Osteoarthritis Sinus bradycardia Surgical History (Last Updated 02/18/20 @ 10:12 by Radha Elaine RN) History of coronary artery stent placement (2010) History of hand surgery Hx of hand surgery Hx of oral surgery Hx of repair of right rotator cuff (01/15/19) Occupational Therapy Inpatient Evaluation/Re-Eval M1 PT/OT-IP Prior Functional Status Start: 02/24/20 12:31 Freq: NEEDED Status: Active Protocol: Document 02/24/20 10:46 [facility] (Rec: 02/24/20 13:01 [facility] [id number]) Medical Review Prior Functional Status Medical History Reviewed Yes Diet/Fluid Consistency Regular Communication WNL. No deficits noted. Able to make needs known. Mobility and Gait IND with all mobility and amb without AD but with limited amb distance d/t back pain. Pt had difficulty amb more than ~25 ft from chair to bathroom without AD. Pt reports he was able to walk ~300 ft to mailbox without AD on a good day. Prior to back pain, pt had no limitations. Activities of Daily Living and IADL's IND for all ADLs and IADLs including driving at baseline. Spouse does most cooking and cleaning. Prior Functional Level (Other details) Pt denies any recent falls. Social History Household Members spouse Living Arrangements House Number of Floors (Floors) Two Floors Number of Stairs To Enter/Railing? 3 TYREE with with unilateral railing. There are stairs inside to go upstairs but pt will stay on main floor, which has everything he needs. Home Environment High Toilet,Walk in Shower Home Equipment Front Wheel Walker,Straight Cane Employment Status Self-Employed Additional Social History Comment Pt lives with spouse, who is retired and will be available full-time to assist at home. M2 OT-IP Current Condition Start: 02/24/20 12:31 Freq: Status: Active Protocol: Document 02/24/20 10:46 [facility] (Rec: 02/24/20 13:01 [facility] [id number]) Occupational Therapy Current Condition Current Condition Evaluation Date 02/24/20 Treatment Diagnosis s/p L4-5 Laminectomy XLIF Diagnosis Onset Date 02/23/20 Post Operative Precautions Lumbar Precautions Log Roll,No Twisting,Limit Bending,Lifting Restriction of 10 lbs,Gait Belt above Incisional Area M3 OT- IP Subjective and Pain Start: 02/24/20 12:31 Freq: Status: Active Protocol: Document 02/24/20 10:46 [facility] (Rec: 02/24/20 13:01 [facility] [id number]) OT- Subjective Occupational Therapy Visit Type Type Initial Evaluation Visit Start Time 10:46 Visit Stop Time 10:08 Total Visit Minutes 22 Occupational Therapy Visit Comments Patient Comments Pt agreed to work with OT and wanting to get dressed. Patient/Caregiver Goals To go home. OT Pain Assessment Pain When Pain Assessed At Rest Pain Present Pain Present Pain Reported Location lower back Intensity 4 Scale Used Numeric (0 - 10) M4 OT- IP ADL's Start: 02/24/20 12:31 Freq: Status: Active Protocol: Document 02/24/20 10:46 [facility] (Rec: 02/24/20 13:01 [facility] [id number]) OT [id number] Comments OT Self-Feeding Comments NOt at meal time. OT ADL-Grooming Comments OT Grooming Comments Educated for pt to lean at his hips to spit or just spit into to cup during oral hygiene needs. OT ADL-Oral Care Comments Oral Care Comments see above OT ADL-Dressing General Eval Upper Body Dressing Ability Independent Lower Body Dressing Ability Standby Assistance,Maximum Assistance Assistive Devices Dressing Assistive Devices Long Handled Shoe Horn,Prompt Care Rn ,Sock Aid Comments OT Dressing Comments Pt states his will just assist for his socks and able to use the cash grain grower to assist to help to put on his brief and pants. OT ADL-Toileting Comments OT Toileting Comments Educated pt to either stand to wipe or lean to the side to be able to follow his back precautions. OT ADL-Bathing Comments OT Bathing Comments Pt not wanting to shower at this time and pt's to be able to assist as needed. Pt states his shower in a small stall and not able to fit a shower chair in it. Pt states able to lean to the wall if needed. M5 OT- IP IADL's Start: 02/24/20 12:31 Freq: Status: Active Protocol: Document 02/24/20 10:46 [facility] (Rec: 02/24/20 13:01 [facility] [id number]) OT-Instrumental Activities of Daily Living Home Safety Awareness Awareness of Need for Assistance at Home Good Awareness Ability to Problem Solve Emergency Able to Problem Solve Situations Medication Management Medication Management Comments Suggested to pt that his provide supervision if needed. Meal Preparation Meal Preparation Caregiver Provides Assist General Machinist General Machinist Caregiver Provides Assist M6 OT- IP Functional Cognition Start: 02/24/20 12:31 Freq: Status: Active Protocol: Document 02/24/20 10:46 [facility] (Rec: 02/24/20 13:01 [facility] [id number]) Cognitive Factors Limiting Selfcare Function Cognitive Ability Level of Alertness Alert Patient Orientation Name,Age,Birthday,Month,Date, Year,Day of Week,Place, Situation Attention Span Ability Capable of Focused Attention, Capable of Sustained Attention Ability to Follow Commands Able to Follow Multi-Step Commands Memory Description No Deficits Noted Safety Awareness No Deficits Noted Problem Solving Ability No deficits Noted Cognitive Comments Cognitive Assessment Comments NO issues noted for cognition. OT- Vision and Hearing OT- Hearing Assessment OT- Hearing Assessment WFL OT- Vision Assessment Visual Acuity Glasses All The Time M7 OT- IP Mobility and Balance Start: 02/24/20 12:31 Freq: Status: Active Protocol: Document 02/24/20 10:46 [facility] (Rec: 02/24/20 13:01 [facility] [id number]) OT-Transfer Assessment Sit to and From Stand Sit to and from Stand Standby Assistance Technique Transfer Destination Chair Devices Transfer Assistive Devices Gait Belt,Front Wheeled Walker Comments Mobility Comments SBA to stand from the recliner . OT- Balance Assessment Sitting Balance and Reactions Static Sitting Balance Ability Normal Dynamic Sitting Balance Ability Normal Standing Balance and Reactions Static Standing Balance Ability Good M8 OT- IP Objective Assessments Start: 02/24/20 12:31 Freq: Status: Active Protocol: Document 02/24/20 10:46 [facility] (Rec: 02/24/20 13:01 [facility] [id number]) OT Gross Range of Motion Upper Extremity Range of Motion Assessment Within Functional Limits M9 OT- IP Assessment and Plan Start: 02/24/20 12:31 Freq: Status: Active Protocol: Document 02/24/20 10:46 [facility] (Rec: 02/24/20 13:01 [facility] [id number]) OT Summary Assessment and Plan Potential Rehabilitation Potential Excellent Analytic Complexity at Evaluation Low Summary OT Impairments Pain,Functional Mobility, Dressing,Bathing,Shower Transfers Progress Towards Goals Progressing Toward Goals Assessment Summary Pt low complexity, doing well and looking to go home today with his . After education for back precaution needs, pt has good understanding for all Adl needs. Goals Patient/Caregiver Education Goal Demonstrate Post-Op Precautions,Caregiver Independent Assisting Patient Days to Meet Goals 1 Frequency of Treatment Frequency Of Treatment Once a Day Treatment Plan OT Treatment Plan ADL Training,Functional Mobility,Patient/Family Education,Discharge Planning Discharge Recommendations OT Discharge Recommendations Home with Assistance Home Equipment Needs cash grain grower and long handled shoe horn given Transportation Needs at Discharge Private Vehicle
--- NOTE | 2020-02-24 11:28 | CM.IDA ---
Initial DCP Assessment Note Pt is a 64 yo male, resident of [facility], now POD#1 from XLIF surgery w/ Dr Benitez PCP: Jaxson Sinclair Payer: [employer] [facility] Reviewed chart, met w/patient to introduce role. Patient is eager to return home w/spouse to assist. Spouse will be transporting patient home, he has been cleared by therapy for this plan. No needs expected from DC planning team although will remain available in case this changes today. HAROON Burns
[2020-02-24 11:49] VITALS: BP 124/63; PULSE 46; RESP 15; TEMP 37; O2SAT 96
--- NOTE | 2020-02-24 12:19 | PT.IIE ---
Current Diagnoses Spondylolisthesis, lumbar region (02/23/20) Spinal stenosis, lumbar region with neurogenic claudication (02/23/20) Surgery Performed Operation Date: 02/23/20 09:45 Actual Procedures p L45 laminectomy & anterior/posterior instumented fusion (XLIF) w. bone graft - Vicente Benitez MD Surgical History (Last Updated 02/18/20 @ 10:12 by Radha Elaine RN) History of coronary artery stent placement (2010) History of hand surgery Hx of hand surgery Hx of oral surgery Hx of repair of right rotator cuff (01/15/19) Medical History (Last Updated 02/18/20 @ 10:16 by Radha Elaine RN) Arthritis CAD (coronary artery disease) Gynecomastia HTN (hypertension) Myocardial infarction (2010) Osteoarthritis Sinus bradycardia Physical Therapy Inpatient Evaluation/Re-Eval M1 PT/OT-IP Prior Functional Status Start: 02/24/20 08:28 Freq: NEEDED Status: Active Protocol: Document 02/24/20 10:33 DE (Rec: 02/24/20 11:13 DE [id number]) Medical Review Prior Functional Status Medical History Reviewed Yes Diet/Fluid Consistency Regular Communication WNL. No deficits noted. Able to make needs known. Mobility and Gait IND with all mobility and amb without AD but with limited amb distance d/t back pain. Pt had difficulty amb more than ~25 ft from chair to bathroom without AD. Pt reports he was able to walk ~300 ft to mailbox without AD on a good day. Prior to back pain, pt had no limitations. Activities of Daily Living and IADL's IND for all ADLs and IADLs including driving at baseline. Spouse does most cooking and cleaning. Prior Functional Level (Other details) Pt denies any recent falls. Social History Household Members spouse Living Arrangements House Number of Floors (Floors) Two Floors Number of Stairs To Enter/Railing? 3 TYREE with with unilateral railing. There are stairs inside to go upstairs but pt will stay on main floor, which has everything he needs. Home Environment High Toilet,Walk in Shower Home Equipment Front Wheel Walker,Straight Cane Employment Status Self-Employed Additional Social History Comment Pt lives with spouse, who is retired and will be available full-time to assist at home. M2 PT-IP Current Condition Start: 02/24/20 08:28 Freq: NEEDED Status: Active Protocol: Document 02/24/20 10:33 DE (Rec: 02/24/20 11:13 DE [id number]) Physical Therapy Current Condition Current Condition Evaluation Date 02/24/20 Treatment Diagnosis L4-5 anterior fusion; Difficulty in walking. Onset Date 02/23/20 Precautions Lumbar Precautions Log Roll,No Twisting,Limit Bending,Lifting Restriction of 10 lbs,Gait Belt above Incisional Area M3 PT-IP Subjective Start: 02/24/20 08:28 Freq: NEEDED Status: Active Protocol: Document 02/24/20 10:33 DE (Rec: 02/24/20 11:13 DE [id number]) Subjective Physical Therapy Visit Type Type Initial Evaluation Visit Start Time 09:23 Visit Stop Time 10:03 Total Visit Minutes 40 Notes SPT Forrest led session under direct supervision of PT Russell. Number of TECHNICAL SALES REPRESENTATIVE Visits 0 Physical Therapy Visit Comments Patient Comments Pt is agreeable to do PT. M4 PT-IP Mobility and Gait Start: 02/24/20 08:28 Freq: NEEDED Status: Active Protocol: Document 02/24/20 10:33 DE (Rec: 02/24/20 11:13 DE [id number]) PT-Bed Mobility Assessment Rolling Type of Rolling Log Rolling,Roll to Right Level of Assist Contact Guard Assistance Supine to Sit Supine to Sit Contact Guard Assistance PT-Transfer Assessment Sit to and From Stand Sit to and from Stand Contact Guard Assistance, Minimal Assistance,1 Person Assistance,Use of Upper Extremities Equipment Transfer Assistive Device Gait Belt,Front Wheeled Walker Orthotic/Prosthetic Devices or Brace: No Transfers Transfer Destination Chair Transfer Technique Amb with FWW Transfer Ability Level of Assist Contact Guard Assistance,Use of Upper Extremities Comments Mobility Comments Pt was inclined in bed upon arrival. Pt completed supine to sit at R EOB from flat bed using logroll technique with CGA and use of BUE. Pt performed sit to stand x2 with FWW. The first time, pt required 1P min assist for stabilizing the FWW to prevent from tipping over. Pt was asked to try again without any assistance. Pt was able to perform the second time by putting elbows on the FWW with CGA without assistance. Pt performed standing marching x5 . Pt then amb ~350 ft total in the hallway to the stairs and back to the room with FWW CGA . Pt demonstrated antalgic step-through gait pattern with externally rotated feet, decreased stride length, lack of B knee extension, and decreased feet clearance. Pt performed 3 steps x4 with CGA: with B railing x1, with R railing going up x3. Cues were provided to lead with the stronger leg for ascending and to lead with the weaker leg for descending. Pt was steady for ascending. The first time, pt had LOB while attempting to do step-over pattern for descending. Cues were provided to use step-to pattern. The second time, pt forgot the instructions and led with the stronger leg for descending and had LOB again. The third and fourth time, pt followed the instructions and completed without any LOB. Pt demonstrated understanding of the instructions. Pt amb back to the room and sat down in the chair with FWW CGA. Pt was reclined comfortably in the chair. Call ligth placed within reach. Gait Assessment Gait Gait Assistance Required: Contact Guard Assist Distance (Feet) 350 Assistive Devices Assistive Device Gait Belt,Front Wheeled Walker Orthotic/Prosthetic Devices or Brace: No Gait Deviations General Gait Pattern Antalgic,Decreased Stride Length,Decreased Feet Clearance,Wide Based Gait Factors Limiting Gait Function Factors Limiting Gait Function Decreased Activity Tolerance, Decreased Strength,Limited Range of Motion,Pain,Poor Balance Comments Gait Comments See mobility comments. Stair Climbing Assessment Evaluation Level of Assist On Stairs Contact Guard Assistance Devices Stair Climbing Assistive Devices Right Railing Technique/Endurance Stair Climbing Direction Ascend and Descend Stair Climbing Technique Step to Step Number of Steps Climbed 3 Query Text: Stair Climbing Set # Repetitions (reps) 4 Comments Stair Climbing Comments See mobility comments. PT-Balance Assessment Sitting Balance and Reactions Static Sitting Balance Ability Normal Dynamic Sitting Balance Ability Normal Standing Balance and Reactions Static Standing Balance Ability Good Dynamic Standing Balance Ability Fair M5 PT-IP Objective Assessments Start: 02/24/20 08:28 Freq: NEEDED Status: Active Protocol: Document 02/24/20 10:33 DE (Rec: 02/24/20 11:13 DE [id number]) Orientation Orientation/Cognition Level of Alertness Alert Orientation Name,Age,Birthday,Month,Date, Year,Day of Week,Place, Situation Language Function Ability No Deficits Noted Safety Awareness Understands Safety Issues Memory Description No Deficits Noted Gross Range of Motion Lower Extremity ROM Assessment Within Functional Limits Strength Lower Extremity Strength Assessment Left Impaired Hip L 4/5 R 5/5 Knee L 4/5 R 5/5 Ankle 5/5 Coordination Assessment Gross Coordination Gross Coordination WNL Sensation Assessment Sensation Gross Sensation WNL Light Touch Intact Muscle Tone Muscle Tone WNL Yes M6 PT-IP Treatment Start: 02/24/20 08:28 Freq: NEEDED Status: Active Protocol: Document 02/24/20 10:33 DE (Rec: 02/24/20 11:13 DE [id number]) Physical Therapy Treatment Education Education Provided Precautions,Post-Op Packet, Safety Other Treatments Other Treatment Performed Provided education on precautions, safety, and role of PT. M7 PT-IP Assessment and Plan Start: 02/24/20 08:28 Freq: NEEDED Status: Active Protocol: Document 02/24/20 10:33 DE (Rec: 02/24/20 11:13 DE [id number]) PT Summary Assessment and Plan Potential Rehabilitation Potential Good Status of Condition at Evaluation Evolving Summary Impairments Pain,ROM,Strength,Balance,Bed Mobility,Transfers,Gait, Activity Tolerance Progress Towards Goals Safe For Discharge Assessment Summary Chinedu is a 64 yo male POD1 s/p L4-5 anterior fusion. At baseline, pt was IND for all mobility and amb without AD but had significantly limited amb distance d/t back pain. Pt had difficulty amb more than 25 ft. On a good day, pt reports he was able to amb ~ 300 ft tothe mailbox. Pt was IND for all ADLs and IADLs including driving. Prior to back pain, pt had no limitations. On evaluation, pt required CGA-SBA for all mobility, transfers, amb, and stair climbing. Pt had LOB on stairs on the first two attempts but was able to perform 3 steps up and down x2 with R railing going up without any LOB with the cues and instructions. Pt also amb ~350 ft with FWW CGA. PT anticipates pt will be safe to d/c home with assistance once medically cleared. Frequency of Treatment Frequency Of Treatment Discharge Recommendations To Nursing Amount of Assist Needed 1 Person Assist Discharge Recommendations PT Discharge Recommendations Home with Assistance Transportation Needs at Discharge Private Vehicle Treatment was provided by Forrest Burden, SPT and supervised by Russell Hylton, PT. I personally reviewed this note and agree with its contents.
--- NOTE | 2020-02-24 14:20 | PC.NURSE ---
Pt states he is ready for discharge home with Spouse. He has showered, had a bm, and voided twice since osorio was removed. HL removed. Dsg to back and left side changed to Coversite dressing. Incision is without drainage and well approximated. Went over d/c instructions with Pt and Spouse-discussed d/c meds, time of last dose, reviewed stroke education, no BLT, logrolling, and follow up. Encouraged Pt to drink plenty of fluids to prevent constipation or dehydration. Pt and Spouse deny further questions and were taken out to POV via w/c by CABLE SYSTEMS INSTALLER with Spouse and all belongings.
== END 2020-02-24 14:48 | disposition home or self-care (01) | DRG 455 ==
PROVIDERS: Admitting Provider Orthopaedic Surgery; PCP Family Medicine; Referring Provider Family Medicine; Visit Provider Orthopaedic Surgery
PROC: 0SG00A0 Fusion of Lumbar Vertebral Joint with Interbody Fusion Device, Anterior Approach, Anterior Column, Open Approach (ICD-10-PCS; CPT 22558; principal; 2020-02-23 09:45)
DX: M48.062 Spinal stenosis, lumbar region with neurogenic claudication (principal); M43.16 Spondylolisthesis, lumbar region; I10 Essential (primary) hypertension; I25.10 Atherosclerotic heart disease of native coronary artery without angina pectoris; R00.0 Tachycardia, unspecified; Z11.59 Encounter for screening for other viral diseases
CPT/HCPCS: 36415; 72100; 76000; 81001; 82962; 85014; 85018; 87635; 93005; 93010; 94762; 97116; 97161; 97165; 97535; C1776; A9270; J0330; J0595; J0690; J1100; J1170; J2274; J2405; J2704; J3010